=== PATIENT | male | born 1960 | race Caucasian/White ===

== ENCOUNTER 2017-07-03 21:38 | Observation (INO) ==
[2017-07-03 22:04] LABS: Basophils # 0.1 K/mcL (0.0-0.2); Basophils % 0.6 %; Eosinophils # 0.2 K/mcL (0.0-0.6); Eosinophils % 2.1 %; Hematocrit 40.9 % (37.5-50.1); Hemoglobin 13.5 g/dL (12.9-16.9); Immature Granulocytes % 0.2 % (0-4); Lymphocytes # 2.4 K/mcL (0.6-4.6); Lymphocytes % 28.7 %; Mean Corpuscular Hemoglobin 29.5 pg (28.0-33.3); Mean Corpuscular Volume 89.5 fL (83.0-100.0); Mean Platelet Volume 9.8 fL (9.4-12.4); Monocytes # 0.8 K/mcL (0.0-1.3); Monocytes % 9.5 %; Platelet Count 276 K/mcL (140-400); Red Blood Count 4.57 M/mcL (4.19-5.50); Red Cell Distribution Width 12.7 % (11.5-14.5); Segmented Neutrophils % 58.9 %
[2017-07-03 22:09] LABS: INR 1.2; Prothrombin Time 12.7 Seconds (9.4-12.1)
[2017-07-03 22:12] LABS: Activated Partial Thrombo Time 27.1 Seconds (26.0-36.0)
[2017-07-03 22:18] LABS: BUN/Creatinine Ratio 12 (6-26); Blood Urea Nitrogen 12 mg/dL (8-26); Carbon Dioxide 25 mEq/L (19-29); Chloride 103 mEq/L (98-109); Glucose 122 mg/dL (70-99); Osmolality,Calculated 285 (280-300); Potassium 3.6 mEq/L (3.5-4.5); Sodium 137 mEq/L (136-145); eGFR For African Americans > 60 (> 60); eGFR For Non-African Americans > 60 (> 60)
[2017-07-03 23:21] LABS: Thyroid Stimulating Hormone 1.404 mcIU/mL (0.350-4.840)
[2017-07-03 23:51] LABS: D-Dimer < 215 ng/mLFEU (0-500)
--- NOTE | 2017-07-03 23:59 | Emergency Department Note ---
Disposition Clinical Impression: Chest pain Qualifiers: Chest pain type: unspecified Qualified Code(s): R07.9 - Chest pain, unspecified Disposition: Admitted As Inpatient Condition: Good Chest Pain HPI - General Chief Complaint: ED Chest Pain Stated Complaint: "CP/SOB Since 07/02/17/Told by PCP to Come Here" Time Seen by Provider: 07/03/17 22:28 Source: patient, family Limitations: no limitations Vital Signs Reviewed: Yes Nursing Notes Reviewed: Yes - History of Present Illness HPI Narrative: Patient here for evaluation of left sided chest pain. Patient states that symptoms started while at work. Patient had started while standing in continued until rest when the symptoms resolved. Patient has had repeated episodes of lasted anywhere from seconds to minutes. Not always worse with walking. Does have shortness of breath with exertion. Pain radiates to left shoulder as well as the left jaw. Patient was encouraged to come for evaluation by coworkers and family. Patient does not have any cardiac history. Has a history of cholesterol. No previous cardiac workup. No family history of cardiac disease. Severity scale (1-10): 5 - Related Data Home Medications Medication Instructions Recorded Confirmed Advair Hfa 45-21 Mcg Inhaler 06/03/15 06/03/15 Neurontin 06/03/15 06/03/15 Nexium 06/03/15 06/03/15 Simvastatin 06/03/15 06/03/15 Wellbutrin 06/03/15 06/03/15 Previous Rx's Medication Instructions Recorded Albuterol Sulfate [Proair HFA] 2 puff IH Q4HR 2 Days hfa.aer.ad 06/03/15 Azithromycin [Zithromax] 250 mg PO DAILY 5 Days tablet 06/03/15 GuaiFENesin/Codeine [Robitussin 5 ml PO Q6HR PRN #120 ml 06/03/15 w/Codeine] Tizanidine HCl 4 mg PO TID #15 tablet 10/18/16 Tramadol HCl [Ultram] 50 mg PO QID PRN #10 tab 10/18/16 Cyclobenzaprine [Flexeril] 10 mg PO TID #30 tablet 11/05/16 Ketorolac [Toradol] 10 mg PO Q6HR #10 tablet 11/05/16 predniSONE [PredniSONE] 20 mg PO TID #15 tablet 11/05/16 Allergies Allergy/AdvReac Type Severity Reaction Status Date / Time No Known Allergies Allergy Verified 07/03/17 21:41 Review of Systems: CONSTITUTIONAL: Fatigue No weight loss, fever, chills, weakness HEENT: Eyes: No visual changes. Ears, Nose, Throat: No hearing loss, difficulty talking or unable to swallow. SKIN: No rash or itching. CARDIOVASCULAR: Chest pain RESPIRATORY: Shortness breath, no cough GASTROINTESTINAL: No anorexia, nausea, vomiting or diarrhea. No abdominal pain or blood. GENITOURINARY: No burning on urination or hematuria. NEUROLOGICAL: No headache, dizziness, syncope, paralysis, ataxia, numbness or tingling in the extremities. No change in bowel or bladder control. MUSCULOSKELETAL: No muscle pain, back pain, joint pain or stiffness. Chest Pain PMH - Past Medical History Medical history: Reports: GERD, hyperlipidemia, hypertension, other Surgical history: Reports: non-contributory Psychiatric history: Reports: anxiety, depression - Social History Smoking Status: Current every day smoker Alcohol use: Reports: none Drug use: Reports: none Physical Exam General appearance: NAD, conversant Eyes: anicteric sclerae, moist conjunctivae; PERRL HENT: Atraumatic; oropharynx clear with moist mucous membranes and no mucosal ulcerations Neck: Normal inspection; Trachea midline; FROM, supple Lungs: CTA, with normal respiratory effort and no intercostal retractions CV: RRR, no MRGs Abdomen: Soft, non-tender; no rebound or gaurding Extremities: No peripheral edema or extremity lymphadenopathy Skin: Normal temperature; no rash, ulcers or lesions Psych: Appropriate mood and affect Neuro: alert and oriented to person, place and time - General Limitations: no limitations General appearance: alert, in no apparent distress Course - Reevaluation(s) Reevaluation #1: Heart score is 4. He will be brought into the hospital for further evaluation. - Consultations Consultation #1: Discussed with hospitalist. Patient accepted for admission. Vital Signs Temperature 97.7 F 07/03/17 21:41 Pulse Rate 61 07/03/17 21:41 Respiratory Rate 18 07/03/17 21:41 Blood Pressure 159/97 07/03/17 21:41 O2 Sat by Pulse Oximetry 97 07/03/17 21:41 Temperature 97.8 F 07/04/17 02:37 Pulse Rate 60 07/04/17 02:37 Respiratory Rate 15 07/04/17 02:37 Blood Pressure 109/67 07/04/17 02:37 O2 Sat by Pulse Oximetry 95 07/04/17 02:37 Oxygen Delivery Oxygen Delivery Room Air Chest Pain - Medical Records Medical records reviewed: Yes I reviewed the patient's medical records. - Lab Data Lab results reviewed: Yes I reviewed the patient's lab results. Result diagrams: 07/03/17 21:56 07/03/17 21:56 Lab Results 07/03/17 07/03/17 07/03/17 Range/Units 21:56 21:56 21:56 WBC 8.5 (4.3-11.1) K/mcL RBC 4.57 (4.19-5.50) M/mcL Hgb 13.5 (12.9-16.9) g/dL Hct 40.9 (37.5-50.1) % MCV 89.5 (83.0-100.0) fL MCH 29.5 (28.0-33.3) pg MCHC 33.0 (31.6-35.5) g/dL RDW 12.7 (11.5-14.5) % Plt Count 276 (140-400) K/mcL MPV 9.8 (9.4-12.4) fL Immature Gran % 0.2 (0-4) % Seg Neutrophils % 58.9 % Lymphocytes % 28.7 % Monocytes % 9.5 % Eosinophils % 2.1 % Basophils % 0.6 % Neutrophils # 5.0 (1.6-8.9) K/mcL Lymphocytes # 2.4 (0.6-4.6) K/mcL Monocytes # 0.8 (0.0-1.3) K/mcL Eosinophils # 0.2 (0.0-0.6) K/mcL Basophils # 0.1 (0.0-0.2) K/mcL PT 12.7 H (9.4-12.1) Seconds INR 1.2 APTT 27.1 (26.0-36.0) Seconds D-Dimer < 215 (0-500) ng/mLFEU Sodium 137 (136-145) mEq/L Potassium 3.6 (3.5-4.5) mEq/L Chloride 103 (98-109) mEq/L Carbon Dioxide 25 (19-29) mEq/L BUN 12 (8-26) mg/dL Creatinine 1.02 (0.72-1.25) mg/dL Est GFR ( Amer) > 60 (> 60) Est GFR (Non-Af Amer) > 60 (> 60) BUN/Creatinine Ratio 12 (6-26) Glucose 122 H (70-99) mg/dL Calculated Osmolality 285 (280-300) Calcium 10.0 (8.6-10.8) mg/dL Troponin I (0-0.03) ng/mL B-Natriuretic Peptide (0-100) pg/mL TSH 1.404 (0.350-4.840) mcIU/mL 07/03/17 07/03/17 Range/Units 21:56 21:56 WBC (4.3-11.1) K/mcL RBC (4.19-5.50) M/mcL Hgb (12.9-16.9) g/dL Hct (37.5-50.1) % MCV (83.0-100.0) fL MCH (28.0-33.3) pg MCHC (31.6-35.5) g/dL RDW (11.5-14.5) % Plt Count (140-400) K/mcL MPV (9.4-12.4) fL Immature Gran % (0-4) % Seg Neutrophils % % Lymphocytes % % Monocytes % % Eosinophils % % Basophils % % Neutrophils # (1.6-8.9) K/mcL Lymphocytes # (0.6-4.6) K/mcL Monocytes # (0.0-1.3) K/mcL Eosinophils # (0.0-0.6) K/mcL Basophils # (0.0-0.2) K/mcL PT (9.4-12.1) Seconds INR APTT (26.0-36.0) Seconds D-Dimer (0-500) ng/mLFEU Sodium (136-145) mEq/L Potassium (3.5-4.5) mEq/L Chloride (98-109) mEq/L Carbon Dioxide (19-29) mEq/L BUN (8-26) mg/dL Creatinine (0.72-1.25) mg/dL Est GFR ( Amer) (> 60) Est GFR (Non-Af Amer) (> 60) BUN/Creatinine Ratio (6-26) Glucose (70-99) mg/dL Calculated Osmolality (280-300) Calcium (8.6-10.8) mg/dL Troponin I 0.00 (0-0.03) ng/mL B-Natriuretic Peptide 12 (0-100) pg/mL TSH (0.350-4.840) mcIU/mL - Radiology Data Radiology results reviewed: Yes I reviewed the patient's radiology results. - EKG Data EKG attestation: Yes I reviewed and interpreted this EKG. EKG results narrative: EKG shows sinus rhythm with ventricular rate of 63. IA interval 149. QRS 113. QTC 423. Patient has no significant ST elevations or depressions. No previous EKG for comparison. Heart Score - Score History: Highly Suspicious EKG: Normal Age: 45-65 Risk Factors: 1-2 risk factors Troponin: Less than normal limit HEART Score Total: 4
--- NOTE | 2017-07-04 00:41 | Emergency Department Note ---
START Narrative - START START: I examined this patient and my medical decision-making was reviewed with the Resident Physician. I agree with the documented findings, disposition and treatment plan as described except to the extent set forth below. 57 year old male witih multiple risk factors and chest pain will be admitted to the hospital today for chest pain rule out. Troponin is negative. ACS therapy given. Rigo is agreeable to admission and currently chest pain free
--- NOTE | 2017-07-04 05:25 | Internal Med History&Physical ---
Date of Encounter: 07/04/17 Time of Encounter: 05:22 Assessment and Plan (1) Chest pain Current visit: Yes Status: Acute Patient presents with chest pain. He is off pain during my interview. EKG shows no ST-segment shifts. 1st troponin normal. check serial troponin. Qualifiers: Chest pain type: unspecified Qualified Code(s): R07.9 - Chest pain, unspecified Internal Medicine - H&P: HPI Chief complaint: chest pain History of present illness: Mr. Naranjo is a 57 year old male who is a chronic smoker presents an emergency room today with the main content of chest pain. The patient was at work standing start experiencing retrosternal chest pain radiating to his job. This lasted for approximately 2 minutes and resolve spontaneously. Patient felt short of breath during this pain. Patient denies any pleuritic nature for the pain, hemoptysis leg pain or tenderness. No prior history of coronary artery disease. No prior history of similar problems. Patient was off pain during my interview. Past Med Surg Social Fam HX - Past Medical History Medical history: GERD, hyperlipidemia, hypertension, other Psychiatric history: anxiety, depression - Past Surgical History Surgical History: non-contributory - Social History Smoking Status: Current every day smoker Packs per day: 1/2 Smokeless Tobacco Status: No Alcohol use: none Drug use: none - Family History Father Hx Family Cancer: Yes (Lung Cancer) Internal Medicine - H&P: Meds Advair Hfa 45-21 Mcg Inhaler 06/03/15 [History] Albuterol Sulfate [Proair HFA] 2 puff IH Q4HR 2 Days hfa.aer.ad 06/03/15 [Rx] Azithromycin [Zithromax] 250 mg PO DAILY 5 Days tablet 06/03/15 [Rx] GuaiFENesin/Codeine [Robitussin w/Codeine] 5 ml PO Q6HR PRN #120 ml 06/03/15 [Rx ] Neurontin 06/03/15 [History] Nexium 06/03/15 [History] Simvastatin 06/03/15 [History] Wellbutrin 06/03/15 [History] Tizanidine HCl 4 mg PO TID #15 tablet 10/18/16 [Rx] Tramadol HCl [Ultram] 50 mg PO QID PRN #10 tab 10/18/16 [Rx] Cyclobenzaprine [Flexeril] 10 mg PO TID #30 tablet 11/05/16 [Rx] Ketorolac [Toradol] 10 mg PO Q6HR #10 tablet 11/05/16 [Rx] predniSONE [PredniSONE] 20 mg PO TID #15 tablet 11/05/16 [Rx] 3 Allergy/AdvReac Type Severity Reaction Status Date / Time No Known Allergies Allergy Verified 07/03/17 21:41 All Systems PM: A 10-system review of systems was performed and is negative for pertinent findings except as documented above in the HPI. Review of systems: 10 point review of systems is negative except for HPI - Constitutional Vitals: Temp Pulse Resp BP Pulse Ox 97.8 F 60 15 109/67 95 07/04/17 02:37 07/04/17 02:37 07/04/17 02:37 07/04/17 02:37 07/04/17 02:37 Exam: General: Patient is A&O X3 Cardiac: normal S1, S2, no additional sounds or murmurs Chest: Clear to auscultation bilaterally Abdomen: soft, nontender, non distended, normal BS. Neuro: No focal deficits Internal Med - H&P Results - Labs CBC & Chem 7: 07/03/17 21:56 07/03/17 21:56
[2017-07-04] MEDS: *HR* Enoxaparin 40 MG/0.4 ML SYRINGE SQ SCH (06:07)
[2017-07-04] MEDS: Aspirin 81 MG TAB.CHEW PO SCH (07:58)
[2017-07-04] MEDS ORDERED: Nicotine 14 MG PATCH.TD24 TD SCH (09:00)
--- NOTE | 2017-07-04 17:01 | Event Note ---
Date of Encounter: 07/04/17 Time of Encounter: 17:00 Patient is currently chest pain-free. On exam he is in no acute distress. Heart is regular, lungs are clear. Abdomen is soft. 2 sets of troponins are negative. EKG reviewed personally shows normal sinus rhythm with no ischemic changes. Plan: We will obtain echocardiogram and stress test in the morning for risk stratification. I have provided smoking cessation counseling. We will discontinue nicotine patch at this time in anticipation of stress test tomorrow.
--- NOTE | 2017-07-05 05:42 | Electrocardiograph Report ---
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
[2017-07-05] MEDS: *HR* Enoxaparin 40 MG/0.4 ML SYRINGE SQ SCH (05:49)
[2017-07-05] MEDS: Aspirin 81 MG TAB.CHEW PO SCH (07:46)
[2017-07-05 11:19] VITALS: BP 106/69
--- NOTE | 2017-07-05 11:30 | Discharge Summary ---
Date of Encounter: 07/05/17 Time of Encounter: 11:28 - Discharge Diagnosis (1) Tobacco abuse Priority: Secondary Status: Acute (2) Essential hypertension Priority: Secondary Status: Acute (3) Hypercholesterolemia Priority: Secondary Status: Acute (4) Chest pain Priority: Primary Status: Acute Qualifiers: Chest pain type: precordial pain Qualified Code(s): R07.2 - Precordial pain - Discharge Medications Home Medications: Albuterol Sulfate [Albuterol Inhaler] 2 puff IH Q4-6H PRN 07/04/17 [History] BuPROPion XL (24 HR) [Wellbutrin Xl] 150 mg PO BID 07/04/17 [History] Esomeprazole Magnesium [Nexium] 40 mg PO DAILY 07/04/17 [History] Gabapentin [Neurontin] 100 mg PO TID 07/04/17 [History] Simvastatin [Zocor] 20 mg PO HS 07/04/17 [History] Allergies/Adverse Reactions: 3 Allergy/AdvReac Type Severity Reaction Status Date / Time No Known Allergies Allergy Verified 07/03/17 21:41 Procedures/tests Complete & Pending: Procedures Performed prior 72 hours Category Date Time Status NM anne perf SPECT multi [NM] Routine Exams 07/05/17 07:00 Taken EV echocardiogram Stat Y 07/04/17 10:55 Completed SP exercise nuclear stress Routine Y 07/05/17 07:10 Completed Date of admission: 07/04/17 00:29 Primary care physician: Chandrika Meza CNP - Patient Status Disposition: Home, Self-Care Condition: Good Functional capacity at discharge: independent ambulation Overall status at discharge: patient is back to baseline - Discharge Instructions Follow Up With: Chandrika Meza CNP [Primary Care Provider] - - Diet and Activity Activity: increase activity as tolerated Diet: low fat, low cholesterol, low salt diet Hospital course: Mr. Naranjo is a 57 year old male - Time Spent with Patient Total time spent providing and/or coordinating discharge services: - Constitutional Vitals: Temp Pulse Resp BP Pulse Ox 97.7 F 66 16 106/69 95 07/05/17 11:17 07/05/17 11:17 07/05/17 11:17 07/05/17 11:17 07/05/17 11:17 - Respiratory Respiratory exam: Present: CTAB. Absent: accessory muscle use, rales, rhonchi, wheezes - Cardiovascular Cardiovascular exam: Present: RRR, +S1, +S2. Absent: diastolic murmur, gallop, rubs, systolic murmur - Extremities Exam Extremities exam: Present: warm, radial pulses palpable and symmetrical. Absent : calf tenderness, cyanotic, pedal edema
[2017-07-06 16:52] LABS: CK-BB (CK isoenzymes) 0 % (0-0); CK-MB (CK isoenzymes) 0 % (0-4); CK-MM (CK-isoenzymes) 100 % (96-100)
[2017-07-07 07:27] LABS: CK Total (Ck Isoenzymes) 153 U/L (20-200)
== END 2017-07-05 13:14 | disposition home or self-care (01) ==
LOC: 3BNU 21:38 → EMEROO 21:38 → SUATTDRO 07-04 00:29 → 3BNU 07-04 00:41
PROVIDERS: ADMIT Hospitalist; ATTEND Internal Medicine